=== PATIENT | male | born 1970 | race Caucasian/White ===

== ENCOUNTER → 2017-08-13 | Outpatient (CLI) | payer BC ==
[2017-08-13 07:21] LABS: HEMATOCRIT 45.3 % (42.0-52.0); HEMOGLOBIN 15.6 g/dl (14.0-18.0); MEAN CELL VOLUME 87.3 fl (80.0-94.0); MEAN CORPUSCULAR HGB 30.1 pg (27.0-31.0); MEAN CORPUSCULAR HGB CONC 34.4 g/dl (33.0-37.0); MEAN PLATELET VOLUME 10.9 fl (9.6-12.3); PLATELET COUNT AUTOMATED 190 10*3/uL (130-400); RED BLOOD COUNT 5.19 10*6/uL (4.50-5.90); RED CELL DISTRI WIDTH 12.8 % (0-14.5); WHITE BLOOD COUNT 14.7 10*3/uL (4.8-10.8)
[2017-08-13 07:47] LABS: BASOPHILS 1 % (0-1); TOTAL CELLS COUNTED 100 #CELLS
[2017-08-13 07:48] LABS: PLATELET SUFFICIENCY NORMAL (NORMAL)
[2017-08-13 07:50] LABS: FREE T4 1.02 ng/dl (0.76-1.46)
[2017-08-13 07:56] LABS: THYROID STIM HORMONE (HS) 1.87 uIU/ml (0.358-4.75)
[2017-08-13 08:40] LABS: VITAMIN D, 25-HYDROXY 31.4 ng/mL (30-100)
[2017-08-14 08:13] LABS: HEPATITIS B SURFACE AG Negative (Negative); HEPATITIS C VIRUS ANTIBODY <0.1 s/co (0.0-0.9)
== END | disposition home or self-care (01) ==
LOC: LAB 06:55
PROVIDERS: Family Medicine
DX: F41.1 Generalized anxiety disorder (principal); D72.829 Elevated white blood cell count, unspecified; R53.83 Other fatigue; E74.00 Glycogen storage disease, unspecified; R06.02 Shortness of breath

== ENCOUNTER → 2018-11-24 | Outpatient (CLI) | payer BC | END | disposition home or self-care (01) | LOC: RAD 15:46 | DX: M25.511 Pain in right shoulder (principal); M54.2 Cervicalgia; Z87.81 Personal history of (healed) traumatic fracture ==

== ENCOUNTER → 2018-12-01 | Outpatient (CLI) | payer BC | END | disposition home or self-care (01) | LOC: MRI 13:57 | DX: M50.20 Other cervical disc displacement, unspecified cervical region (principal); G44.029 Chronic cluster headache, not intractable; R52 Pain, unspecified; R20.2 Paresthesia of skin; Z87.790 Personal history of (corrected) congenital malformations of face and neck ==

== ENCOUNTER → 2018-12-22 | Outpatient (CLI) | payer BC | END | disposition home or self-care (01) | LOC: MRI 12:55 | DX: R42 Dizziness and giddiness (principal); R51 Headache; M54.2 Cervicalgia; M79.601 Pain in right arm; H53.8 Other visual disturbances; M79.602 Pain in left arm; R20.0 Anesthesia of skin; R26.89 Other abnormalities of gait and mobility ==

== ENCOUNTER → 2021-07-18 | Outpatient (CLI) | payer BC | END | disposition home or self-care (01) | LOC: US 13:24 | PROVIDERS: ATTEND Family Medicine | DX: C91.10 Chronic lymphocytic leukemia of B-cell type not having achieved remission (principal); R22.1 Localized swelling, mass and lump, neck ==